=== PATIENT | female | born 1990 | race American Indian/Alaskan Native ===

== ENCOUNTER 2020-12-04 13:48 | Emergency (ER) | payer SELFPAY ==
[2020-12-04 14:12] VITALS: BP 113/66
--- NOTE | 2020-12-04 16:59 | Emergency Department Report ---
Chief Complaint: Chest Pain Stated Complaint: PAIN IN LEFT BREAST WITH LUMP Time Seen by Provider: 12/04/20 16:40 - HPI History of Present Illness: 29-year-old female patient presents emergency department with complaints of pain to her left breast starting 3 days ago. No preceding fall, trauma, or injury. No overlying skin changes. Patient is not breast-feeding. She is not . Patient was already evaluated by her primary care provider for this issue. An outpatient mammogram was ordered. She is scheduled to undergo the mammogram in January. Patient came to the emergency department in an attempt to expedite outpatient imaging. Denies fever, chills, erythema, swelling, nipple discharge. Denies all other complaints at this time. - ROS Review of Systems: GENERAL: Negative for fever. CARDIOVASCULAR: Negative for chest pain. PULMONARY: Negative for shortness of breath. GASTROINTESTINAL: Negative for abdominal pain. MUSCULOSKELETAL: Negative for back pain. NEUROLOGICAL: Negative for headache. INTEGUMENTARY: Positive for breast pain - Exam Vital Signs: Vital Signs 12/04/20 14:10 Temperature 98.4 F Pulse Rate 94 H Respiratory 18 Rate Blood Pressure 113/66 [Right] O2 Sat by Pulse 98 Oximetry Physical Exam: General: Awake, appropriately interactive, no acute distress. Neck: Supple. Full range of motion intact. Cardiovascular: Normal peripheral perfusion. Pulmonary: No respiratory distress. Patient is speaking normally without use of accessory muscles. Breast: Female jailer (CRISTINO Benavidez) present. No asymmetry. No nipple discharge. No warmth or erythema. No crepitus. Patient reports pain along the outer lower quadrant of the left breast without reproducible tenderness. No palpable mass. No regional lymphadenopathy. Skin: No apparent rashes or lesions. Neurological: No facial asymmetry. Speech is clear. Follows commands. Patient is alert and oriented. Musculoskeletal: Moves all four extremities spontaneously with normal range of motion. Psych: Cooperative. Appropriate mood and affect. MSE screening note: Focused history and physical exam performed. Due to findings the following was ordered: ED Medical Decision Making - Medical Decision Making Patient presents to the emergency department in an attempt to expedite outpatient imaging as ordered by primary care provider. Patient is afebrile, hemodynamically stable, well-hydrated, no distress. There is no clinical evidence to suggest infection, trauma, or surgical emergency warranting further diagnostic work-up on an emergent basis at this time. Patient will be discharged home to follow-up for outpatient mammogram as previously arranged by her physician. Patient expressed understanding and is agreeable to plan of care. Strict return precautions provided. BILLING/CODING: This patient encounter does not represent a certified medical emergency. ED Disposition for MSE Clinical Impression: Encounter for medical screening examination Disposition: TO HOME OR SELFCARE Is pt being admited?: No Does the pt Need Aspirin: No Condition: Stable Instructions: Medical Screening Exam Additional Instructions: Follow-up for outpatient mammogram as previously arranged by your physician. Return to the emergency department immediately for new or worsening symptoms. Referrals: LORENA ARROYO MD [Staff Physician] - 3-5 Days Time of Disposition: 17:00
== END 2020-12-04 17:24 | disposition home or self-care (01) ==
LOC: ED 13:48
DX: Z13.9 Encounter for screening, unspecified (principal); Z88.0 Allergy status to penicillin
CPT/HCPCS: 99281

== ENCOUNTER 2020-12-24 15:17 | Emergency (ER) | payer SELFPAY ==
--- NOTE | 2020-12-24 15:49 | Event Note ---
ED Screening Note Date of service: 12/24/20 Time: 15:47 ED Screening Note: 30-year-old female patient presents to the emergency department with complaints of subjective fever, chills, myalgias, back pain, and nausea starting 2 days ago. Patient states her child was recently diagnosed with a "summer cold." Patient has not received her COVID-19 vaccination series. Took Tylenol with limited relief. No current steroid or antibiotic use. No recent travel. Last menstrual cycle was 1 week ago. General: Awake, appropriately interactive, no acute distress. Neck: Supple. Full range of motion intact. Cardiovascular: Normal peripheral perfusion. Pulmonary: No respiratory distress. Patient is speaking normally without use of accessory muscles. Skin: No apparent rashes or lesions. Neurological: No facial asymmetry. Speech is clear. Follows commands. Patient is alert and oriented. Musculoskeletal: Moves all four extremities spontaneously with normal range of motion. Psych: Cooperative. Appropriate mood and affect. I have greeted and performed a focused rapid initial assessment of this patient. A comprehensive ED assessment and evaluation of the patient, analysis of all test results, and completion of the medical decision-making process will be conducted by additional ED providers. This initial assessment/diagnostic orders/clinical plan/treatment(s) is/are subject to change based on patients health status, clinical progression and re-assessment. Further treatment and workup at subsequent clinical provider's discretion. Patient/guardian urged not to elope from the ED as their condition may be serious if not clinically assessed and managed.
[2020-12-24 16:30] LABS: Hematocrit 36.8 % (30.3-42.9); Hemoglobin 12.6 gm/dl (10.1-14.3); Mean Corpuscular HGB Conc 34 % (30-34); Mean Corpuscular Volume 100 fl (79-97); Platelet Count 189 K/mm3 (140-440); Red Cell Distribution Width 13.1 % (13.2-15.2)
[2020-12-24 16:37] LABS: Alanine Aminotransferase 25 units/L (7-56); Albumin 4.4 g/dL (3.9-5); Blood Urea Nitrogen 11 mg/dL (7-17); Calcium 8.7 mg/dL (8.4-10.2); Hemolysis Index 8
[2020-12-24 16:53] LABS: Bilirubin,Urine NEG (Negative); Blood,Urine NEG (Negative); Color,Urine Colorless (Yellow); Protein,Urine <15 mg/dL mg/dL (Negative); RBC,Urine < 1.0 /HPF (0.0-6.0); Urobilinogen,Urine < 2.0 mg/dL (<2.0)
[2020-12-24 16:55] LABS: BUN/Creatinine Ratio 22
[2020-12-24 17:03] LABS: HCG Qualitative,Urine Negative (Negative); WBC,Urine < 1.0 /HPF (0.0-6.0)
[2020-12-24 17:26] LABS: Platelet Estimate Consistent w Auto; RBC Morphology Normal; Total Cells Counted 100
--- NOTE | 2020-12-24 17:37 | XRay Report ---
CHEST 2 VIEWS INDICATION / CLINICAL INFORMATION: nausea/myalgias; COVID. COMPARISON: None available. FINDINGS: SUPPORT DEVICES: None. HEART / MEDIASTINUM: No significant abnormality. LUNGS / PLEURA: No significant pulmonary or pleural abnormality. No pneumothorax. ADDITIONAL FINDINGS: No significant additional findings. IMPRESSION: 1. No acute findings. Signer Name: Lorenzo Cervantes MD Signed: 12/24/2020 5:32 PM Workstation Name: [id number]
--- NOTE | 2020-12-24 19:36 | Emergency Department Report ---
- General Chief Complaint: Weakness Stated Complaint: LOWER BACK PAIN, HEADACHE, VOMITING Time Seen by Provider: 12/24/20 19:23 Source: patient Mode of arrival: Ambulatory Limitations: No Limitations - History of Present Illness Initial Comments: 30 year old female who reports no significant past medical history presents to ED with complaints of flu like symptoms. Onset 2 am this morning. Patient reports that she has had a headache, nausea, diaphoresis, and body aches especially in her legs and back since 2 AM this morning. She denies any abdominal pain, diarrhea, cough, sore throat, fever or UTI symptoms. She denies any ill contacts or known COVID-19 contacts. She denies any recent travel. She states that she smokes marijuana but not tobacco. She has not had a Covid 19 vaccine or taking a COVID-19 test since she has been sick. Complaint: other (Headache, bodyaches, diaphoresis, and nausea ) - Related Data Previous Rx's Medication Instructions Recorded Last Taken Type Butalb/Acetamin/Caff 50-325-40 1 tab PO Q6HR PRN #12 tab 12/24/20 Unknown Rx [Fioricet 50-325-40] Ondansetron [Zofran Odt] 4 mg PO Q8HR PRN #15 tab.rapdis 12/24/20 Unknown Rx Allergies Allergy/AdvReac Type Severity Reaction Status Date / Time Penicillins Allergy Vomiting Verified 12/04/20 14:08 ED Review of Systems ROS: Stated complaint: LOWER BACK PAIN, HEADACHE, VOMITING Other details as noted in HPI ED Past Medical Hx - Past Medical History Previous Medical History?: No - Surgical History Past Surgical History?: No - Social History Smoking Status: Never Smoker Substance Use Type: None - Medications Home Medications: Home Medications Medication Instructions Recorded Confirmed Last Taken Type Butalb/Acetamin/Caff 50-325-40 1 tab PO Q6HR PRN #12 tab 12/24/20 Unknown Rx [Fioricet 50-325-40] Ondansetron [Zofran Odt] 4 mg PO Q8HR PRN #15 tab.rapdis 12/24/20 Unknown Rx ED Physical Exam - General Limitations: No Limitations ED Course Vital Signs 12/24/20 15:30 Temperature 97.9 F Pulse Rate 87 Respiratory 18 Rate O2 Sat by Pulse 100 Oximetry ED Medical Decision Making - Lab Data Result diagrams: 12/24/20 16:04 12/24/20 16:04 - Radiology Data Radiology results: report reviewed Patient: ANTOINETTE DOUGLASS MR#: [id number] : 1990 Acct:[id number] Age/Sex: 30 / F ADM Date: 12/24/20 Loc: ED Attending Dr: Ordering Physician: ALEXUS FALLON Date of Service: 12/24/20 Procedure(s): XR chest routine 2V Accession Number(s): [id number] cc: ALEXUS FALLON Fluoro Time In Minutes: CHEST 2 VIEWS INDICATION / CLINICAL INFORMATION: nausea/myalgias; COVID. COMPARISON: None available. FINDINGS: SUPPORT DEVICES: None. HEART / MEDIASTINUM: No significant abnormality. LUNGS / PLEURA: No significant pulmonary or pleural abnormality. No pneumoth orax. ADDITIONAL FINDINGS: No significant additional findings. IMPRESSION: 1. No acute findings. Signer Name: Lorenzo Cervantes MD Signed: 12/24/2020 5:32 PM Workstation Name: [id number] Transcribed By: JOSE F Dictated By: Lorenzo Cervantes MD Electronically Authenticated By: Lorenzo Cervantes MD Signed Date/Time: 12/24/201731 DD/ 31 TD/TT: - Medical Decision Making 30 year old female who reports no significant past medical history presents to ED with complaints of flu like symptoms. Onset 2 am this morning. Patient report s that she has had a headache, nausea, diaphoresis, and body aches especially in her legs and back since 2 AM this morning. She denies any abdominal pain, diarrhea, cough, sore throat, fever or UTI symptoms. She denies any ill contacts or known COVID-19 contacts. She denies any recent travel. She states that she smokes marijuana but not tobacco. She has not had a Covid 19 vaccine or taking a COVID-19 test since she has been sick. Lab results reviewed - CBC show leukopenia with white count of 2.4, but according to the absolute neutrophil count calculator patient is not neutropenic, Her CK was 377 (non specific at this time), remaining labs including UA unremarkable/cxr show nothing acute. 1940: Patient was very upset when I walked in room to see her. She was complaining that she had been here for 4 hours and still not seen or had been off anything for pain. She stated she didn't feel like she needed an xray and had no idea why she got one. she states that she just wants her d/c papers and work noted so she can get out of here. I calmly apologized to patient, and told her that we had to wait to get her a room but I'm here to see her now. Patient was still very upset, she was reluctant to answer question and allow me to do an H&P but I calmly informed her that I need to get her history and physical exam on her before I can discharge her. She reluctantly allowed me to do an H&P and stated that she wanted her d/c papers to get out of here. Overall patient is well-appearing, not toxic and not in any acute pain or distress. She is neurologically intact with a normal gait. Reviewed work-up results with patient, suspected diagnosis and discharge plan with patient. P atient was stable at time of discharge. Critical care attestation.: If time is entered above; I have spent that time in minutes in the direct care of this critically ill patient, excluding procedure time. ED Disposition Clinical Impression: Viral syndrome Disposition: DC-01 TO HOME OR SELFCARE Is pt being admited?: No Does the pt Need Aspirin: No Condition: Stable Instructions: Viral Illness, Adult Additional Instructions: Take the zofran and the fiorcet as prescribed. Drink lots of fluids. Follow up with PCP. Return to ED if worse. Prescriptions: Butalb/Acetamin/Caff 50-325-40 [Fioricet 50-325-40] 1 tab PO Q6HR PRN #12 tab PRN Reason: Headache Ondansetron [Zofran Odt] 4 mg PO Q8HR PRN #15 tab.rapdis PRN Reason: Nausea Referrals: ALLIE HUERTAS MD [Staff Physician] - 3-5 Days [facility] [Provider Group] - 3-5 Days Forms: Work/School Release Form(ED)
[2020-12-25 08:46] VITALS: BP 111/69
== END 2020-12-24 19:40 | disposition home or self-care (01) ==
LOC: ED 15:17
DX: B34.9 Viral infection, unspecified (principal); R51.9 Headache, unspecified; R11.0 Nausea; M79.18 Myalgia, other site; Z88.0 Allergy status to penicillin; Z79.899 Other long term (current) drug therapy
CPT/HCPCS: 36415; 71046; 80053; 81001; 81025; 82550; 83690; 83735; 85007; 85025; 99284

== ENCOUNTER 2021-01-30 07:56 | Emergency (ER) | payer SELFPAY ==
[2021-01-30 08:24] VITALS: BP 102/65
[2021-01-30 09:44] LABS: Bilirubin,Urine NEG (Negative); Blood,Urine NEG (Negative); Color,Urine Yellow (Yellow); Mucus,Urine 3+ /HPF
--- NOTE | 2021-01-30 11:08 | Emergency Department Report ---
ED HPI - General Chief complaint: Abdominal Pain Stated complaint: WKS PREG? ABD PAIN Time Seen by Provider: 01/30/21 09:46 Source: patient Mode of arrival: Ambulatory Limitations: No Limitations - History of Present Illness Initial comments: The patient was evaluated in the emergency department for symptoms described in the history of present illness. He/she was evaluated in the context of the global COVID-19 pandemic, which necessitated consideration that the patient might be at risk for infection with the virus that causes COVID-19. I nstitutional protocols and algorithms that pertain to the evaluation of patients at risk for COVID-19 are in a state of rapid change based on information released by regulatory bodies including the CDC and federal and state organizations. These policies and algorithms were followed during the patient's care in the emergency department. Please note that these policies, procedures and recommendations changed on a rapid basis. 30-year-old -[place] female presents to the emergency room complaining of abdominal pain x2 days. She admits to consistent nausea and vomiting. Patient denies any dysuria no vaginal bleeding no vaginal discharge. States her last menstrual period was 12/16/2020. She is 1 para 0. Patient states that she saw her [employer] 2 days ago and had an ultrasound and was told to come back in for weeks. Patient is unvaccinated. Denies any diarrhea no chest pain no shortness of breathing no cough. Patient denies any past medical history currently takes no meds on a daily basis. MD Complaint: abdominal pain Radiation: none Severity: moderate Severity scale (0 -10): 7 Quality: stabbing, aching, sharp Consistency: constant Improves with: none Worsens with: none - Related Data Previous Rx's Medication Instructions Recorded Last Taken Type Butalb/Acetamin/Caff 50-325-40 1 tab PO Q6HR PRN #12 tab 12/24/20 Unknown Rx [Fioricet 50-325-40] Ondansetron [Zofran Odt] 4 mg PO Q8HR PRN #15 tab.rapdis 12/24/20 Unknown Rx Doxylamine Succinate [Unisom] 25 mg PO BID #20 tablet 01/30/21 Unknown Rx Bruna Root/Pyridoxine HCl(B6) 1 each PO BID #20 capsule 01/30/21 Unknown Rx [Vicectin 25-325 mg Capsule] Nitrofurantoin [place]/M-Cryst 100 mg PO Q12HR 7 Days #14 capsule 01/30/21 Unknown Rx [Macrobid CAP] Allergies Allergy/AdvReac Type Severity Reaction Status Date / Time Penicillins Allergy Vomiting Verified 12/04/20 14:08 ED Review of Systems ROS: Stated complaint: WKS PREG? ABD PAIN Other details as noted in HPI ED Past Medical Hx - Past Medical History Previous Medical History?: No - Surgical History Past Surgical History?: No - Social History Smoking Status: Never Smoker Substance Use Type: None - Medications Home Medications: Home Medications Medication Instructions Recorded Confirmed Last Taken Type Butalb/Acetamin/Caff 50-325-40 1 tab PO Q6HR PRN #12 tab 12/24/20 Unknown Rx [Fioricet 50-325-40] Ondansetron [Zofran Odt] 4 mg PO Q8HR PRN #15 tab.rapdis 12/24/20 Unknown Rx Doxylamine Succinate [Unisom] 25 mg PO BID #20 tablet 01/30/21 Unknown Rx Bruna Root/Pyridoxine HCl(B6) 1 each PO BID #20 capsule 01/30/21 Unknown Rx [Vicectin 25-325 mg Capsule] Nitrofurantoin [place]/M-Cryst 100 mg PO Q12HR 7 Days #14 capsule 01/30/21 Unknown Rx [Macrobid CAP] ED Physical Exam - General Limitations: No Limitations ED Course Vital Signs 01/30/21 08:23 Temperature 98.2 F Pulse Rate 68 Respiratory 18 Rate Blood Pressure 102/65 O2 Sat by Pulse 98 Oximetry ED Medical Decision Making - Medical Decision Making 30-year-old -[place] female presents to the emergency room complaining of abdominal pain x2 days. She admits to consistent nausea and vomiting. Patient denies any dysuria no vaginal bleeding no vaginal discharge. States her last menstrual period was 12/16/2020. She is 1 para 0. Patient states that she saw her [employer] 2 days ago and had an ultrasound and was told to come back in for weeks. Patient is unvaccinated. Denies any diarrhea no chest pain no shortness of breathing no cough. Patient denies any past medical history currently takes no meds on a daily basis. hCG urinalysis ultrasound less than 14 weeks with transvaginal has been ordered. Urinalysis is positive for urinary tract infection she does have 80 ketones. Still waiting for hCG to get transvaginal ultrasound to rule out ectopic . Critical care attestation.: If time is entered above; I have spent that time in minutes in the direct care of this critically ill patient, excluding procedure time. ED Disposition Clinical Impression: UTI (urinary tract infection) Disposition: HOME / SELF CARE / HOMELESS Is pt being admited?: No Does the pt Need Aspirin: No Condition: Stable Instructions: Abdominal Pain (ED), and Urinary Tract Infection Additional Instructions: Ultrasound shows you are 6 weeks and 2 days . Urinalysis is positive for urinary tract infection. I would like for you to complete your antibiotics as prescribed increase your fluid intake. You can take bruna root B6 and Unisom for your nausea. Prescriptions: Nitrofurantoin [place]/M-Cryst [Macrobid CAP] 100 mg PO Q12HR 7 Days #14 capsule Doxylamine Succinate [Unisom] 25 mg PO BID #20 tablet Bruna Root/Pyridoxine HCl(B6) [Vicectin 25-325 mg Capsule] 1 each PO BID #20 capsule Referrals: PRIMARY CARE, [Primary Care Provider] - 3-5 Days [facility] [Provider Group] - 3-5 Days Forms: Work/School Release Form(ED)
--- NOTE | 2021-01-30 12:52 | Ultrasound Report ---
OB Ultrasound HISTORY: preg abd pain. TECHNIQUE: Grayscale and color imaging performed. COMPARISON: None FINDINGS: Transabdominal and endovaginal imaging was performed. Uterus measures 8.4 x 5.6 x 5.9 cm with an intrauterine gestational sac demonstrating a mean diameter of 2 cm which corresponds with an EGA of 6 weeks and 6 days. There is also a pole measuring 4 mm corresponding with an EGA of 6 weeks and 0 days. Heart rate is 113 bpm. A small yolk sac is presen t. Estimated delivery date is 09/23/2021. There is a likely functional left ovarian cyst measuring 1.1 cm in maximal dimension and there is a s mall adjacent simple cyst measuring 2.2 cm. The right ovary is unremarkable. No appreciable pelvic fr ee fluid identified. IMPRESSION: Single viable intrauterine gestation as above. Signer Name: Mark De Leon MD Signed: 01/30/2021 12:47 PM Workstation Name: [id number]
== END 2021-01-30 15:00 | disposition home or self-care (01) ==
LOC: ED 07:56
DX: O23.41 Unspecified infection of urinary tract in pregnancy, first trimester (principal); Z3A.01 Less than 8 weeks gestation of pregnancy; Z88.0 Allergy status to penicillin; Z79.899 Other long term (current) drug therapy
CPT/HCPCS: 36415; 76801; 76817; 81001; 84702; 87086

== ENCOUNTER 2021-03-04 16:48 | Emergency (ER) | payer OTHER ==
[2021-03-04 17:06] VITALS: BP 108/60
--- NOTE | 2021-03-04 18:29 | Ultrasound Report ---
US OB transvaginal, US OB <= 14 weeks fetus INDICATION / CLINICAL INFORMATION: vaginal bleeding. TECHNIQUE: Transabdominal and Transvaginal. COMPARISON: Ultrasound 01/30/2021 FINDINGS: UTERUS: No intrauterine gestational sac is visualized. There is an intrauterine gestational sac seen on 01/30/2021. ADNEXA: There are a couple of left ovarian cysts measuring up to 2.4 cm which are most certainly yunior gn in etiology. No significant abnormality. FREE FLUID: None. ADDITIONAL FINDINGS: None. IMPRESSION: 1. No intrauterine is visualized. Findings consistent with miscarriage. Signer Name: Oskar Albrecht MD Signed: 03/04/2021 6:24 PM Workstation Name: [id number]
--- NOTE | 2021-03-04 18:35 | Emergency Department Report ---
ED General Adult HPI - General Chief complaint: Vaginal Bleeding Stated complaint: POSS ECTOPIC PREG/ABN LAB/5WKS PREG Time Seen by Provider: 03/04/21 17:28 Source: patient Mode of arrival: Ambulatory Limitations: No Limitations - History of Present Illness Initial comments: 30-year-old -[place] female patient presents with complaints of vaginal bleeding for the past few days. Patient states she was seen by her CATALYTIC CONVERTER OPERATOR and referred to the ED for possible ectopic . She reports she was seen here in the ED 01/30/2021 and found to be at the time. Patient states she did have a medical completed the next day. At the time of her visit in January here in the ED, her ultrasound showed an IUP and gestational sac. She denies any heavy vaginal bleeding, abdominal pain, fever/chills/sweats, or other symptoms. Patient states she is feeling well and is not sure why her CATALYTIC CONVERTER OPERATOR believes she had an ectopic today. - Related Data Previous Rx's Medication Instructions Recorded Last Taken Type Butalb/Acetamin/Caff 50-325-40 1 tab PO Q6HR PRN #12 tab 12/24/20 Unknown Rx [Fioricet 50-325-40] Ondansetron [Zofran Odt] 4 mg PO Q8HR PRN #15 tab.rapdis 12/24/20 Unknown Rx Doxylamine Succinate [Unisom] 25 mg PO BID #20 tablet 01/30/21 Unknown Rx Bruna Root/Pyridoxine HCl(B6) 1 each PO BID #20 capsule 01/30/21 Unknown Rx [Vicectin 25-325 mg Capsule] Nitrofurantoin [place]/M-Cryst 100 mg PO Q12HR 7 Days #14 capsule 01/30/21 Unknown Rx [Macrobid CAP] Allergies Allergy/AdvReac Type Severity Reaction Status Date / Time Penicillins Allergy Vomiting Verified 03/04/21 17:07 ED Review of Systems ROS: Stated complaint: POSS ECTOPIC PREG/ABN LAB/5WKS PREG Other details as noted in HPI Constitutional: denies: chills, diaphoresis, fever, malaise, weakness Gastrointestinal: denies: abdominal pain, nausea, vomiting Genitourinary: denies: urgency, frequency, hematuria, discharge Musculoskeletal: denies: back pain Neurological: denies: numbness, paresthesias ED Past Medical Hx - Social History Smoking Status: Never Smoker Substance Use Type: None - Medications Home Medications: Home Medications Medication Instructions Recorded Confirmed Last Taken Type Butalb/Acetamin/Caff 50-325-40 1 tab PO Q6HR PRN #12 tab 12/24/20 Unknown Rx [Fioricet 50-325-40] Ondansetron [Zofran Odt] 4 mg PO Q8HR PRN #15 tab.rapdis 12/24/20 Unknown Rx Doxylamine Succinate [Unisom] 25 mg PO BID #20 tablet 01/30/21 Unknown Rx Bruna Root/Pyridoxine HCl(B6) 1 each PO BID #20 capsule 01/30/21 Unknown Rx [Vicectin 25-325 mg Capsule] Nitrofurantoin [place]/M-Cryst 100 mg PO Q12HR 7 Days #14 capsule 01/30/21 Unknown Rx [Macrobid CAP] ED Physical Exam - General Limitations: No Limitations General appearance: alert, in no apparent distress - Head Head exam: Present: atraumatic, normocephalic - Eye Eye exam: Present: normal appearance. Absent: scleral icterus - Respiratory Respiratory exam: Absent: respiratory distress - Cardiovascular Cardiovascular Exam: Present: regular rate - GI/Abdominal GI/Abdominal exam: Present: soft, normal bowel sounds. Absent: distended, tenderness, guarding, rebound, rigid - Neurological Exam Neurological exam: Present: alert, oriented X3, normal gait - Psychiatric Psychiatric exam: Present: normal affect, agitated - Skin Skin exam: Present: warm, dry, intact, normal color. Absent: rash ED Course Vital Signs 03/04/21 17:05 Temperature 98.5 F Pulse Rate 76 Respiratory 18 Rate Blood Pressure 108/60 [Left] O2 Sat by Pulse 100 Oximetry ED Medical Decision Making - Lab Data Result diagrams: 03/04/21 18:15 03/04/21 18:15 - Radiology Data Radiology results: report reviewed US OB transvaginal, US OB <= 14 weeks fetus INDICATION / CLINICAL INFORMATION: vaginal bleeding. TECHNIQUE: Transabdominal and Transvaginal. COMPARISON: Ultrasound 01/30/2021 FINDINGS: UTERUS: No intrauterine gestational sac is visualized. There is an intrauterine gestational sac seen on 01/30/2021. ADNEXA: There are a couple of left ovarian cysts measuring up to 2.4 cm which are most certainly benign in etiology. No significant abnormality. FREE FLUID: None. ADDITIONAL FINDINGS: None. IMPRESSION: 1. No intrauterine is visualized. Findings consistent with miscarriage. - Medical Decision Making 30-year-old -[place] female patient presents with complaints of vaginal bleeding for the past few days. Patient states she was seen by her CATALYTIC CONVERTER OPERATOR and referred to the ED for possible ectopic . She reports she was seen here in the ED 01/30/2021 and found to be at the time. Patient states she did have a medical completed the next day. At the time of her visit in January here in the ED, her ultrasound showed an IUP and gestational sac. She denies any heavy vaginal bleeding, abdominal pain, fever/chills/sweats, or other symptoms. Patient states she is feeling well and is not sure why her CATALYTIC CONVERTER OPERATOR believes she had an ectopic today. Ultrasound is negative for any IUP or ectopic . Completed miscarriage. Recommend follow-up with CATALYTIC CONVERTER OPERATOR in 3 to 5 days. Patient is well-appearing, her vitals are normal, she is stable for discharge home. Patient declined awaiting the results of her beta-hCG levels and declined having a urinalysis today. She denies any dysuria/hematuria/urinary frequency Critical care attestation.: If time is entered above; I have spent that time in minutes in the direct care of this critically ill patient, excluding procedure time. ED Disposition Clinical Impression: Complete miscarriage Disposition: 01 HOME / SELF CARE / HOMELESS Is pt being admited?: No Condition: Stable Instructions: Miscarriage Additional Instructions: With your CATALYTIC CONVERTER OPERATOR within 3 to 5 days.
[2021-03-04 18:36] LABS: Basophils % (Auto) 0.3 % (0.0-1.8); Eosinophils # (Auto) 0.1 K/mm3 (0.0-0.4); Eosinophils % (Auto) 1.1 % (0.0-4.3); Hematocrit 39.6 % (30.3-42.9); Hemoglobin 13.6 gm/dl (10.1-14.3); Lymphocytes # (Auto) 1.8 K/mm3 (1.2-5.4); Lymphocytes % (Auto) 35.3 % (13.4-35.0); Mean Corpuscular HGB Conc 34 % (30-34); Mean Corpuscular Volume 102 fl (79-97); Monocytes # (Auto) 0.4 K/mm3 (0.0-0.8); Monocytes % (Auto) 7.3 % (0.0-7.3); Platelet Count 203 K/mm3 (140-440); Red Blood Count 3.89 M/mm3 (3.65-5.03); Red Cell Distribution Width 13.1 % (13.2-15.2)
[2021-03-04 19:11] LABS: Alanine Aminotransferase 11 units/L (7-56); Albumin 4.6 g/dL (3.9-5); Blood Urea Nitrogen 8 mg/dL (7-17); Calcium 9.9 mg/dL (8.4-10.2); Hemolysis Index 10
[2021-03-04 19:15] LABS: BUN/Creatinine Ratio 13
== END 2021-03-04 20:07 | disposition home or self-care (01) ==
LOC: ED 16:48
DX: O03.9 Complete or unspecified spontaneous abortion without complication (principal); Z88.0 Allergy status to penicillin; Z79.899 Other long term (current) drug therapy
CPT/HCPCS: 36415; 76801; 76817; 80053; 84702; 85025; 86900; 86901; 99284